=== PATIENT | male | born 1975 | race African-American/Black ===

== ENCOUNTER 2018-01-08 12:36 | Inpatient (IN) | payer OTHER ==
[2018-01-08 14:22] VITALS: BMI 24.5
--- NOTE | 2018-01-08 17:38 | HP ---
CIWA Score - CIWA Score Nausea/Vomitin Muscle Tremors: 1-None Visible, but [place] Anxiety: 3 Agitation: 4-Moderately Restless Paroxysmal Sweats: 1-Minimal Palms Moist Orientation: 0-Oriented Tacttile Disturbances: 0-None Auditory Disturbances: 0-None Visual Disturbances: 0-None Headache: 0-None Present CIWA-Ar Total Score: 12 Admission ROS BHS - HPI Chief Complaint: ETOH withdrawal symptoms. Allergies/Adverse Reactions: Allergies Allergy/AdvReac Type Severity Reaction Status Date / Time No Known Allergies Allergy Verified 01/08/18 17:10 History of Present Illness: Patient presents with ETOH withdrawal symptoms. Started drinking at age 12. Drinks up to 1 litre of Vodka daily. Smokes crack/cocaine weekly. Smokes up to 50.00$ per day of crack/cocaine. Denies Seizures from ETOH use/withdrawal. Also reports using non-prescribed Methadone. Last drink and use of Methadone 01/04/18 , last use of crack/cocaine last night. PMH HIV positive, Depression, anxiety and PTSD. Reports taking Xanax twice daily for anxiety. Last dose today. Denies SI/HI and suicide attempts. Exam Limitations: No Limitations - Ebola screening Have you traveled outside of the country in the last 21 days: No Have you had contact with anyone from an Ebola affected area: No Have you been sick,other than usual withdrawal symptoms: No Do you have a fever: No - Review of Systems Constitutional: Chills, Night Sweats, Changes in sleep, Unexplained wgt Loss EENT: reports: Blurred Vision, Nose Congestion Respiratory: reports: No Symptoms reported Cardiac: reports: No Symptoms Reported GI: reports: Diarrhea, Poor Fluid Intake, Abdominal cramping : reports: No Symptoms Reported Musculoskeletal: reports: Muscle Pain Integumentary: reports: Sweating Neuro: reports: Headache, Tremors Endocrine: reports: Unexplained Weight Loss Hematology: reports: No Symptoms Reported Psychiatric: reports: Orientated x3, Anxious, Depressed Patient History - Patient Medical History Hx Anemia: No Hx Asthma: No Hx Chronic Obstructive Pulmonary Disease (COPD): No Hx Cancer: No Hx Cardiac Disorders: No Hx Congestive Heart Failure: No Hx Hypertension: No Hx Hypercholesterolemia: No Hx Pacemaker: No HX Cerebrovascular Accident: No Hx Seizures: No Hx Dementia: No Hx Diabetes: No Hx Gastrointestinal Disorders: No Hx Liver Disease: No Hx Genitourinary Disorders: No Hx Sexually Transmitted Disorders: No Hx Renal Disease (ESRD): No Hx Thyroid Disease: No Hx Human Immunodeficiency Virus (HIV): Yes Hx Hepatitis C: No Hx Depression: Yes Hx Suicide Attempt: No Hx Bipolar Disorder: No Hx Schizophrenia: No - Patient Surgical History Past Surgical History: No Hx Neurologic Surgery: No Hx Cataract Extraction: No Hx Cardiac Surgery: No Hx Lung Surgery: No Hx Breast Surgery: No Hx Breast Biopsy: No Hx Abdominal Surgery: No Hx Appendectomy: Yes (pt unsure of date) Hx Cholecystectomy: Yes (pt unsure of date) Hx Genitourinary Surgery: No Hx Section: No Hx Orthopedic Surgery: Yes (L leg fx sx) Hx Hysterectomy: No Other Surgical History: R orbital fx sx Anesthesia Reaction: No - PPD History Previous Implant?: Yes Documented Results: Negative w/o proof Implanted On Prior [facility] Admission?: No PPD to be Administered?: Yes - Smoking Cessation Smoking history: Current every day smoker Have you smoked in the past 12 months: Yes Aproximately how many cigarettes per day: 8 Hx Chewing Tobacco Use: No Initiated information on smoking cessation: Yes 'Breaking Loose' booklet given: 01/08/18 - Substance & Tx. History Hx Alcohol Use: Yes Hx Substance Use: Yes Substance Use Type: Alcohol (XANAX and non prescribed methadone), Cocaine, Tranquilizers Hx Substance Use Treatment: Yes - Substances Abused Alcohol Route: Oral Frequency: Daily Amount used: 1 LITER VODKA Age of first use: 12 Date of Last Use: 01/08/18 Crack Route: Smoking Frequency: 1-2 times per week Amount used: $50 Age of first use: 22 Date of Last Use: 01/08/18 Non-Rx Methadone Route: Oral Frequency: 3-6 times per week Amount used: 90 MG Age of first use: 32 Date of Last Use: 01/06/18 Family Disease History - Family Disease History Family History: Denies Admission Physical Exam BHS - Vital Signs Vital Signs: Vital Signs - 24 hr 01/08/18 14:15 Temperature 98.2 F Pulse Rate 80 Respiratory 18 Rate Blood Pressure 128/70 - Physical General Appearance: Yes: Appropriately Dressed, Thin, Irritable, Sweating, Anxious HEENTM: Yes: EOMI, Hearing grossly Normal, Normocephalic, Normal Voice, KELVIN, Thrush Respiratory: Yes: Chest Non-Tender, Lungs Clear, Normal Breath Sounds, No Respiratory Distress, No Accessory Muscle Use Neck: Yes: No masses,lesions,Nodules, Supple, Trachea in good position Breast: Yes: Breast Exam Deferred Cardiology: Yes: Regular Rhythm, S1, S2 Abdominal: Yes: Normal Bowel Sounds, Non Tender, Flat, Soft Genitourinary: Yes: Within Normal Limits Back: Yes: Muscle Spasm Musculoskeletal: Yes: Gait Steady, Joint swelling, Muscle Pain Extremities: Yes: Normal Inspection, Non-Tender, Tremors, Swelling Neurological: Yes: internal audit consultant II-XII NML intact, Fully Oriented, Alert, Motor Strength 5/5, Depressed Affect Integumentary: Yes: Normal Color, Warm, Moist Lymphatic: Yes: Within Normal Limits - Diagnostic (1) Alcohol dependence with uncomplicated withdrawal Current Visit: Yes Status: Acute (2) Cocaine use Current Visit: Yes Status: Acute (3) HIV positive Current Visit: Yes Status: Chronic (4) Depressed affect Current Visit: Yes Status: Acute (5) Anxiety Current Visit: Yes Status: Acute Cleared for Admission [facility] - Detox or Rehab [facility] Level of Care: Medically Managed Detox Regimen/Protocol: Valium [facility] Breath Alcohol Content Breath Alcohol Content: 0 Urine Drug Screen - Results Drug Screen Negative: No Urine Drug Screen Results: DEBORAH-Cocaine, BZO-Benzodiazepines
[2018-01-08] MEDS ORDERED: P-EPHED 60MG/TRIPROLIDI 2.5MG TABLET PO PRN (17:54)
[2018-01-08] MEDS ORDERED: guaiFENesin/D-METHORPHAN HB 10 ML UNIT-DOSE CUPS PO PRN (17:54)
[2018-01-08] MEDS ORDERED: hydrOXYzine PAMOATE 50 MG CAPSULE (FP) PO PRN (17:54)
[2018-01-08] MEDS ORDERED: MAG HYDROX/AL HYDROX/SIMETH 30 ML UNIT-DOSE CUP PO PRN (17:54)
[2018-01-08] MEDS ORDERED: LOPERAMIDE HCL 2 MG CAPSULE PO PRN (17:54)
[2018-01-08] MEDS ORDERED: MENTHOL/PHENOL 1 EACH UD MM PRN (17:54)
[2018-01-08] MEDS ORDERED: NICOTINE POLACRILEX 2 MG GUM BC PRN (17:54)
[2018-01-08] MEDS ORDERED: ACETAMINOPHEN 325 MG TABLET (FP) PO PRN (17:54)
[2018-01-08] MEDS ORDERED: MAGNESIUM HYDROX 2400MG/30ML ORAL SUSPENSION 30 ML CUP PO PRN (17:54)
[2018-01-08] MEDS ORDERED: MAGNESIUM CITRATE 300 ML BOTTLE PO PRN (17:54)
[2018-01-08] MEDS ORDERED: diazePAM 5 MG TABLET PO ONE (18:15)
[2018-01-08] MEDS: MELATONIN 5 MG TABLETS PO PRN (22:31)
[2018-01-08] MEDS: THIAMINE HCL 100 MG TABLET (FP) PO SCH (22:32)
[2018-01-08] MEDS: diazePAM 5 MG TABLET PO SCH (22:32)
[2018-01-08 23:50] LABS: URINE APPEARANCE CLEAR; URINE BILIRUBIN NEGATIVE (<2.0 mg/dL); URINE COLOR YELLOW; URINE GLUCOSE (UA) NEGATIVE (NEGATIVE); URINE KETONE NEGATIVE (NEGATIVE); URINE LEUK ESTERASE TRACE (NEGATIVE); URINE NITRITE NEGATIVE (NEGATIVE); URINE PROTEIN NEGATIVE (NEGATIVE)
[2018-01-08 23:59] LABS: EPI CELLS RARE /HPF (FEW); URINE BACTERIA RARE /hpf (NONE SEEN); URINE MUCUS RARE
[2018-01-09] MEDS: diazePAM 5 MG TABLET PO SCH ×3 (05:25→21:02)
[2018-01-09 09:48] LABS: HEMATOCRIT 36.9 % (35.4-49); HEMOGLOBIN 12.7 GM/dL (11.7-16.9); MCH 33.8 pg (25.7-33.7); MCHC 34.5 g/dl (32.0-35.9); MEAN CELL VOLUME 97.9 fl (80-96); PLATELET COUNT 115 K/MM3 (134-434); RBC 3.77 M/mm3 (4.00-5.60); RDW 15.4 % (11.9-15.9); WHITE BLOOD COUNT 3.8 K/mm3 (4.0-10.0)
[2018-01-09] MEDS: PRENATAL VITAMINS W/ FOLIC ACID TABLET (FP) PO SCH (10:32)
[2018-01-09] MEDS: ABACAVIR/DOLUTEGRAVIR/LAMIVUDI (TRIUMEQ) TABLET -NF PO SCH (10:32)
[2018-01-09] MEDS: NICOTINE 21 MG/24 HOURS TOPICAL PATCH TD SCH (10:33)
[2018-01-09] MEDS: IBUPROFEN 400 MG TABLET (FP) PO PRN ×2 (10:34→21:00)
[2018-01-09 10:42] LABS: CHLORIDE 102 mmol/L (98-107); POTASSIUM 3.6 mmol/L (3.5-5.1); SODIUM 136 mmol/L (136-145)
[2018-01-09 10:52] LABS: ALBUMIN 3.4 g/dl (3.4-5.0); ALK PHOS 81 U/L (45-117); ANION GAP 9 (8-16); BILIRUBIN,TOTAL 0.5 mg/dL (0.2-1.0); BLOOD UREA NITROGEN 9 mg/dL (7-18); CALCIUM 8.7 mg/dL (8.5-10.1); CO2 25 mmol/L (21-32); GLUCOSE,RANDOM 113 mg/dL (74-106); SGOT/AST 47 U/L (15-37); SGPT/ALT 19 U/L (12-78); TOT PROT 8.9 g/dl (6.4-8.2)
--- NOTE | 2018-01-09 11:31 | EKG ---
Test Reason : Blood Pressure : / mmHG Vent. Rate : 074 BPM Atrial Rate : 074 BPM P-R Int : 188 ms QRS Dur : 086 ms QT Int : 394 ms P-R-T Axes : 070 062 054 degrees QTc Int : 437 ms NORMAL SINUS RHYTHM MINIMAL VOLTAGE CRITERIA FOR LVH, MAY BE NORMAL VARIANT BORDERLINE ECG NO PREVIOUS ECGS AVAILABLE Confirmed by AARON PERALTA MD ([id number]) on 01/09/2018 11:30:57 AM Referred By: Confirmed By:AARON PERALTA MD
--- NOTE | 2018-01-09 11:51 | PN ---
[facility] CIWA - CIWA Score Nausea/Vomitin-Mild Nausea/No Vomiting Muscle Tremors: 3 Anxiety: 3 Agitation: 3 Paroxysmal Sweats: 1-Minimal Palms Moist Orientation: 0-Oriented Tacttile Disturbances: 0-None Auditory Disturbances: 0-None Visual Disturbances: 0-None Headache: 0-None Present CIWA-Ar Total Score: 11 S Progress Note (SOAP) Subjective: sweat tremor anxiety restlessness trouble sleep at night Objective: 01/09/18 11:49 Vital Signs Temperature 98.4 F 01/09/18 10:00 Pulse Rate 80 01/09/18 10:00 Respiratory Rate 18 01/09/18 10:00 Blood Pressure 105/74 01/09/18 10:00 O2 Sat by Pulse Oximetry (%) Laboratory Last Values WBC 3.8 K/mm3 (4.0-10.0) L 01/09/18 06:00 RBC 3.77 M/mm3 (4.00-5.60) L 01/09/18 06:00 Hgb 12.7 GM/dL (11.7-16.9) 01/09/18 06:00 Hct 36.9 % (35.4-49) 01/09/18 06:00 MCV 97.9 fl (80-96) H 01/09/18 06:00 MCH 33.8 pg (25.7-33.7) H 01/09/18 06:00 MCHC 34.5 g/dl (32.0-35.9) 01/09/18 06:00 RDW 15.4 % (11.9-15.9) 01/09/18 06:00 Plt Count 115 K/MM3 (134-434) L 01/09/18 06:00 MPV 9.0 fl (7.5-11.1) 01/09/18 06:00 Sodium 136 mmol/L (136-145) 01/09/18 06:00 Potassium 3.6 mmol/L (3.5-5.1) 01/09/18 06:00 Chloride 102 mmol/L (98-107) 01/09/18 06:00 Carbon Dioxide 25 mmol/L (21-32) 01/09/18 06:00 Anion Gap 9 (8-16) 01/09/18 06:00 BUN 9 mg/dL (7-18) 05/03/18 06:00 Creatinine 1.0 mg/dL (0.7-1.3) 01/09/18 06:00 Creat Clearance w eGFR > 60 (>60) 01/09/18 06:00 Random Glucose 113 mg/dL (74-106) H 01/09/18 06:00 Calcium 8.7 mg/dL (8.5-10.1) 01/09/18 06:00 Total Bilirubin 0.5 mg/dL (0.2-1.0) 01/09/18 06:00 AST 47 U/L (15-37) H 01/09/18 06:00 ALT 19 U/L (12-78) 01/09/18 06:00 Alkaline Phosphatase 81 U/L (45-117) 01/09/18 06:00 Total Protein 8.9 g/dl (6.4-8.2) H 01/09/18 06:00 Albumin 3.4 g/dl (3.4-5.0) 01/09/18 06:00 Urine Color Yellow 01/08/18 21:35 Urine Appearance Clear 01/08/18 21:35 Urine pH 6.0 (5.0-8.0) 01/08/18 21:35 Ur Specific [place] 1.012 (1.001-1.035) 01/08/18 21:35 Urine Protein Negative (NEGATIVE) 01/08/18 21:35 Urine Glucose (UA) Negative (NEGATIVE) 01/08/18 21:35 Urine Ketones Negative (NEGATIVE) 01/08/18 21:35 Urine Blood Negative (NEGATIVE) 01/08/18 21:35 Urine Nitrite Negative (NEGATIVE) 01/08/18 21:35 Urine Bilirubin Negative (<2.0 mg/dL) 01/08/18 21:35 Urine Urobilinogen 2.0 mg/dL (0.2-1.0) 01/08/18 21:35 Ur Leukocyte Esterase Trace (NEGATIVE) 01/08/18 21:35 Urine WBC (Auto) 4 /hpf (3-5) 01/08/18 21:35 Urine RBC (Auto) <1 /hpf (0-3) 01/08/18 21:35 Ur Epithelial Cells Rare /HPF (FEW) 01/08/18 21:35 Urine Bacteria Rare /hpf (NONE SEEN) 01/08/18 21:35 Urine Mucus Rare 01/08/18 21:35 lab noted Assessment: 01/09/18 11:50 withdrawal sx Plan: continue detox
[2018-01-09] MEDS: diazePAM 5 MG TABLET PO PRN (12:27)
--- NOTE | 2018-01-09 15:15 | CONSULT ---
[facility] Psychiatric Consult - Data Date of interview: 01/09/18 Admission source: [facility] Identifying data: Patient is a 42 year old transgender female to male, single, without kids, currently employed and living alone. Patient admitted to for alcohol and cocaine dependence. Substance Abuse History: Following information confirmed with Mr. Cote: - Smoking Cessation. Smoking history: Current every day smoker. Have you smoked in the past 12 months: Yes. Aproximately how many cigarettes per day: 8. Hx Chewing Tobacco Use: No. Initiated information on smoking cessation: Yes. ' Breaking Loose' booklet given: 01/08/18. - Substance & Tx. History. Hx Alcohol Use: Yes. Hx Substance Use: Yes. Substance Use Type: Alcohol (XANAX and non prescribed methadone), Cocaine, Tranquilizers. Hx Substance Use Treatment: Yes. - Substances Abused. Alcohol. Route: Oral. Frequency: Daily. Amount used: 1 LITER VODKA. Age of first use: 12. Date of Last Use: . Crack. Route: Smoking. Frequency: 1-2 times per week. Amount used : $50. Age of first use: 22. Date of Last Use: 01/08/18. Non-Rx Methadone. Route: Oral. Frequency: 3-6 times per week. Amount used: 90 MG. Age of first use: 32. Date of Last Use: 01/06/18 Medical History: Appendectomy, Cholecystectomy, left leg fx, and right orbital fracture sx. Psychiatric History: Patient reports two psychiatric hospitalizations, most recently last year at [facility]. Patient's first psychiatric hospitalization was in [place] in 1994. OPD is provided by [facility]. Claims to have a diagnosis of Depression, anxiety, and PTSD ( trauma as a child which patient refused to elaborate on). States she is prescribed lamicatal (is nonadherent), seroquel 400mg. Reports recently taking seroquel two days ago. Pt. denies h/o suicide attempt. Mental Status Exam - Mental Status Exam Alert and Oriented to: Time, Place, Person Cognitive Function: Good Patient Appearance: Well Groomed Mood: Hopeful, Euthymic Affect: Mood Congruent Patient Behavior: Appropriate, Cooperative Speech Pattern: Appropriate Voice Loudness: Normal Thought Process: Goal Oriented Thought Disorder: Not Present Hallucinations: Denies Suicidal Ideation: Denies Homicidal Ideation: Denies Insight/Judgement: Poor Sleep: Poorly Appetite: Fair Muscle strength/Tone: Normal Gait/Station: Normal Psychiatric Findings - Problem List ([place] 1, 2,3) (1) Cocaine dependence Current Visit: Yes Status: Acute (2) Alcohol dependence with uncomplicated withdrawal Current Visit: Yes Status: Acute (3) Substance induced mood disorder Current Visit: Yes Status: Acute (4) Insomnia Current Visit: Yes Status: Acute (5) PTSD (post-traumatic stress disorder) Current Visit: Yes Status: Suspected Comment: History of trauma as a child. - Initial Treatment Plan Initial Treatment Plan: Psychoeducation provided. Detoxification provided. Seroquel 200mg qhs ordered. Benefits and side effects discussed. Verbal consent again. Will continue to monitor.
[2018-01-09 15:35] LABS: SICKLE CELL SCREEN NEGATIVE (NEGATIVE)
[2018-01-09] MEDS: THIAMINE HCL 100 MG TABLET (FP) PO SCH (21:02)
[2018-01-09] MEDS: MELATONIN 5 MG TABLETS PO PRN (21:03)
[2018-01-09] MEDS ORDERED: QUEtiapine FUMARATE 200 MG TABLET PO SCH (22:00)
[2018-01-10] MEDS: IBUPROFEN 400 MG TABLET (FP) PO PRN ×2 (06:47→17:05)
[2018-01-10] MEDS: diazePAM 5 MG TABLET PO PRN ×2 (06:47→17:04)
[2018-01-10] MEDS: PRENATAL VITAMINS W/ FOLIC ACID TABLET (FP) PO SCH (10:23)
[2018-01-10] MEDS: ABACAVIR/DOLUTEGRAVIR/LAMIVUDI (TRIUMEQ) TABLET -NF PO SCH (10:24)
[2018-01-10] MEDS: NICOTINE 21 MG/24 HOURS TOPICAL PATCH TD SCH (10:24)
[2018-01-10] MEDS: diazePAM 5 MG TABLET PO SCH ×2 (10:24→21:39)
--- NOTE | 2018-01-10 12:11 | PN ---
S CIWA - CIWA Score Nausea/Vomitin-No Nausea/No Vomiting Muscle Tremors: 3 Anxiety: 3 Agitation: 3 Paroxysmal Sweats: 1-Minimal Palms Moist Orientation: 0-Oriented Tacttile Disturbances: 0-None Auditory Disturbances: 0-None Visual Disturbances: 0-None Headache: 0-None Present CIWA-Ar Total Score: 10 S Progress Note (SOAP) Subjective: sweat tremor trouble sleep at night anxiety restlessness Objective: 01/10/18 12:10 Vital Signs Temperature 98.1 F 01/10/18 10:41 Pulse Rate 77 01/10/18 10:41 Respiratory Rate 20 01/10/18 10:41 Blood Pressure 122/76 01/10/18 10:41 O2 Sat by Pulse Oximetry (%) Laboratory Last Values WBC 3.8 K/mm3 (4.0-10.0) L 01/09/18 06:00 RBC 3.77 M/mm3 (4.00-5.60) L 01/09/18 06:00 Hgb 12.7 GM/dL (11.7-16.9) 01/09/18 06:00 Hct 36.9 % (35.4-49) 01/09/18 06:00 MCV 97.9 fl (80-96) H 01/09/18 06:00 MCH 33.8 pg (25.7-33.7) H 01/09/18 06:00 MCHC 34.5 g/dl (32.0-35.9) 01/09/18 06:00 RDW 15.4 % (11.9-15.9) 01/09/18 06:00 Plt Count 115 K/MM3 (134-434) L 01/09/18 06:00 MPV 9.0 fl (7.5-11.1) 01/09/18 06:00 Sickle Cell Screen Negative (NEGATIVE) 01/09/18 06:00 Sodium 136 mmol/L (136-145) 01/09/18 06:00 Potassium 3.6 mmol/L (3.5-5.1) 01/09/18 06:00 Chloride 102 mmol/L (98-107) 01/09/18 06:00 Carbon Dioxide 25 mmol/L (21-32) 01/09/18 06:00 Anion Gap 9 (8-16) 01/09/18 06:00 BUN 9 mg/dL (7-18) 01/09/18 06:00 Creatinine 1.0 mg/dL (0.7-1.3) 01/09/18 06:00 Creat Clearance w eGFR > 60 (>60) 01/09/18 06:00 Random Glucose 113 mg/dL (74-106) H 01/09/18 06:00 Calcium 8.7 mg/dL (8.5-10.1) 01/09/18 06:00 Total Bilirubin 0.5 mg/dL (0.2-1.0) 01/09/18 06:00 AST 47 U/L (15-37) H 01/09/18 06:00 ALT 19 U/L (12-78) 01/09/18 06:00 Alkaline Phosphatase 81 U/L (45-117) 01/09/18 06:00 Total Protein 8.9 g/dl (6.4-8.2) H 01/09/18 06:00 Albumin 3.4 g/dl (3.4-5.0) 01/09/18 06:00 Urine Color Yellow 01/08/18 21:35 Urine Appearance Clear 01/08/18 21:35 Urine pH 6.0 (5.0-8.0) 01/08/18 21:35 Ur Specific [place] 1.012 (1.001-1.035) 01/08/18 21:35 Urine Protein Negative (NEGATIVE) 01/08/18 21:35 Urine Glucose (UA) Negative (NEGATIVE) 01/08/18 21:35 Urine Ketones Negative (NEGATIVE) 01/08/18 21:35 Urine Blood Negative (NEGATIVE) 01/08/18 21:35 Urine Nitrite Negative (NEGATIVE) 01/08/18 21:35 Urine Bilirubin Negative (<2.0 mg/dL) 01/08/18 21:35 Urine Urobilinogen 2.0 mg/dL (0.2-1.0) 01/08/18 21:35 Ur Leukocyte Esterase Trace (NEGATIVE) 01/08/18 21:35 Urine WBC (Auto) 4 /hpf (3-5) 01/08/18 21:35 Urine RBC (Auto) <1 /hpf (0-3) 01/08/18 21:35 Ur Epithelial Cells Rare /HPF (FEW) 01/08/18 21:35 Urine Bacteria Rare /hpf (NONE SEEN) 01/08/18 21:35 Urine Mucus Rare 01/08/18 21:35 RPR Titer Nonreactive (NONREACTIVE) 01/09/18 06:00 lab noted Assessment: 01/10/18 12:11 withdrawal sx Plan: continue detox
--- NOTE | 2018-01-10 13:48 | PN ---
[facility] Progress Note Note: Psychiatric nurse practitioner note: Patient alert and oriented X3. Patient able to tolerate seroquel 200mg qhs. No reported complaints or signs of oversedation. Vital signs within normal limits. Pt. reports taking seroquel 400mg qhs. Will increase seroquel to 300mg. Verbal consent given. Will continue to monitor.
[2018-01-10] MEDS: QUEtiapine FUMARATE 300 MG TABLET PO SCH (21:39)
[2018-01-10] MEDS: MELATONIN 5 MG TABLETS PO PRN (21:39)
[2018-01-10] MEDS: THIAMINE HCL 100 MG TABLET (FP) PO SCH (21:39)
[2018-01-11] MEDS: diazePAM 5 MG TABLET PO SCH ×2 (10:26→22:02)
[2018-01-11] MEDS: PRENATAL VITAMINS W/ FOLIC ACID TABLET (FP) PO SCH (10:26)
[2018-01-11] MEDS: ABACAVIR/DOLUTEGRAVIR/LAMIVUDI (TRIUMEQ) TABLET -NF PO SCH (10:27)
[2018-01-11] MEDS: IBUPROFEN 400 MG TABLET (FP) PO PRN (10:28)
[2018-01-11] MEDS: NICOTINE 21 MG/24 HOURS TOPICAL PATCH TD SCH (10:30)
--- NOTE | 2018-01-11 13:21 | PN ---
S Progress Note (SOAP) Subjective: Fatigue, interrupted sleep, anxiety Objective: 01/11/18 13:20 Vital Signs 01/11/18 01/11/18 06:24 10:00 Temperature 97.2 F L 97.2 F L Pulse Rate 78 75 Respiratory 18 18 Rate Blood Pressure 117/83 136/87 Laboratory Last Values WBC 3.8 K/mm3 (4.0-10.0) L 01/09/18 06:00 RBC 3.77 M/mm3 (4.00-5.60) L 01/09/18 06:00 Hgb 12.7 GM/dL (11.7-16.9) 01/09/18 06:00 Hct 36.9 % (35.4-49) 01/09/18 06:00 MCV 97.9 fl (80-96) H 01/09/18 06:00 MCH 33.8 pg (25.7-33.7) H 01/09/18 06:00 MCHC 34.5 g/dl (32.0-35.9) 01/09/18 06:00 RDW 15.4 % (11.9-15.9) 01/09/18 06:00 Plt Count 115 K/MM3 (134-434) L 01/09/18 06:00 MPV 9.0 fl (7.5-11.1) 01/09/18 06:00 Sickle Cell Screen Negative (NEGATIVE) 01/09/18 06:00 Sodium 136 mmol/L (136-145) 01/09/18 06:00 Potassium 3.6 mmol/L (3.5-5.1) 01/09/18 06:00 Chloride 102 mmol/L (98-107) 01/09/18 06:00 Carbon Dioxide 25 mmol/L (21-32) 01/09/18 06:00 Anion Gap 9 (8-16) 01/09/18 06:00 BUN 9 mg/dL (7-18) 01/09/18 06:00 Creatinine 1.0 mg/dL (0.7-1.3) 01/09/18 06:00 Creat Clearance w eGFR > 60 (>60) 01/09/18 06:00 Random Glucose 113 mg/dL (74-106) H 01/09/18 06:00 Calcium 8.7 mg/dL (8.5-10.1) 01/09/18 06:00 Total Bilirubin 0.5 mg/dL (0.2-1.0) 01/09/18 06:00 AST 47 U/L (15-37) H 01/09/18 06:00 ALT 19 U/L (12-78) 01/09/18 06:00 Alkaline Phosphatase 81 U/L (45-117) 01/09/18 06:00 Total Protein 8.9 g/dl (6.4-8.2) H 01/09/18 06:00 Albumin 3.4 g/dl (3.4-5.0) 01/09/18 06:00 Urine Color Yellow 01/08/18 21:35 Urine Appearance Clear 01/08/18 21:35 Urine pH 6.0 (5.0-8.0) 01/08/18 21:35 Ur Specific [place] 1.012 (1.001-1.035) 01/08/18 21:35 Urine Protein Negative (NEGATIVE) 01/08/18 21:35 Urine Glucose (UA) Negative (NEGATIVE) 01/08/18 21:35 Urine Ketones Negative (NEGATIVE) 01/08/18 21:35 Urine Blood Negative (NEGATIVE) 01/08/18 21:35 Urine Nitrite Negative (NEGATIVE) 01/08/18 21:35 Urine Bilirubin Negative (<2.0 mg/dL) 01/08/18 21:35 Urine Urobilinogen 2.0 mg/dL (0.2-1.0) 01/08/18 21:35 Ur Leukocyte Esterase Trace (NEGATIVE) 01/08/18 21:35 Urine WBC (Auto) 4 /hpf (3-5) 01/08/18 21:35 Urine RBC (Auto) <1 /hpf (0-3) 01/08/18 21:35 Ur Epithelial Cells Rare /HPF (FEW) 01/08/18 21:35 Urine Bacteria Rare /hpf (NONE SEEN) 01/08/18 21:35 Urine Mucus Rare 01/08/18 21:35 RPR Titer Nonreactive (NONREACTIVE) 01/09/18 06:00 Labs noted Assessment: 01/11/18 13:21 Withdrawal sx Plan: Continue detox
--- NOTE | 2018-01-11 14:41 | PN ---
[facility] Progress Note Note: Patient reported to nurse this afternoon she was on 10mg of warfarin for PE prior to her admission. She declined to report to admitting provider for fear of not being admitted. PT/INR ordered to determine current values, will medicate accordingly based on report.
[2018-01-11 15:57] LABS: INR 0.94 (0.82-1.09); PROTHROMBIN TIME (PATIENT) 10.6 SEC (9.7-13.0)
[2018-01-11] MEDS ORDERED: WARFARIN NA 5 MG TABLET (UD) PO SCH ×3 (18:00→21:00)
[2018-01-11] MEDS: QUEtiapine FUMARATE 300 MG TABLET PO SCH (22:01)
[2018-01-11] MEDS: THIAMINE HCL 100 MG TABLET (FP) PO SCH (22:02)
[2018-01-12] MEDS: ABACAVIR/DOLUTEGRAVIR/LAMIVUDI (TRIUMEQ) TABLET -NF PO SCH (09:06)
[2018-01-12] MEDS ORDERED: diazePAM 5 MG TABLET PO SCH (10:00)
[2018-01-12 10:03] VITALS: BP 130/87; PULSE 91; TEMP 98.2
--- NOTE | 2018-01-12 12:30 | DS ---
[facility] Detox Discharge Summary Admission Date: 01/08/18 Discharge Date: 01/12/18 - History Present History: Alcohol Dependence, Cocaine Dependence Pertinent Past History: HIV Pulmonary embolism - Physical Exam Results Vital Signs: Vital Signs Temperature 98.2 F 01/12/18 10:02 Pulse Rate 91 H 01/12/18 10:02 Respiratory Rate 16 01/12/18 10:02 Blood Pressure 130/87 01/12/18 10:02 O2 Sat by Pulse Oximetry (%) Pertinent Admission Physical Exam Findings: Withdrawal symptoms Laboratory Tests 01/08/18 01/09/18 01/09/18 21:35 06:00 06:00 WBC 3.8 L RBC 3.77 L Hgb 12.7 Hct 36.9 MCV 97.9 H MCH 33.8 H MCHC 34.5 RDW 15.4 Plt Count 115 L MPV 9.0 Sickle Cell Screen Negative PT with INR INR Sodium 136 Potassium 3.6 Chloride 102 Carbon Dioxide 25 Anion Gap 9 BUN 9 Creatinine 1.0 Creat Clearance w eGFR > 60 Random Glucose 113 H Calcium 8.7 Total Bilirubin 0.5 AST 47 H ALT 19 Alkaline Phosphatase 81 Total Protein 8.9 H Albumin 3.4 Urine Color Yellow Urine Appearance Clear Urine pH 6.0 Ur Specific [place] 1.012 Urine Protein Negative Urine Glucose (UA) Negative Urine Ketones Negative Urine Blood Negative Urine Nitrite Negative Urine Bilirubin Negative Urine Urobilinogen 2.0 Ur Leukocyte Esterase Trace Urine WBC (Auto) 4 Urine RBC (Auto) <1 Ur Epithelial Cells Rare Urine Bacteria Rare Urine Mucus Rare RPR Titer 01/09/18 01/11/18 06:00 14:13 WBC RBC Hgb Hct MCV MCH MCHC RDW Plt Count MPV Sickle Cell Screen PT with INR 10.60 INR 0.94 Sodium Potassium Chloride Carbon Dioxide Anion Gap BUN Creatinine Creat Clearance w eGFR Random Glucose Calcium Total Bilirubin AST ALT Alkaline Phosphatase Total Protein Albumin Urine Color Urine Appearance Urine pH Ur Specific [place] Urine Protein Urine Glucose (UA) Urine Ketones Urine Blood Urine Nitrite Urine Bilirubin Urine Urobilinogen Ur Leukocyte Esterase Urine WBC (Auto) Urine RBC (Auto) Ur Epithelial Cells Urine Bacteria Urine Mucus RPR Titer Nonreactive Labs reviewed - Treatment Hospital Course: Detox Protocol Followed, Detoxed Safely, Responded well, Discharged Condition Good - Medication Discharge Medications: Ambulatory Orders Abacavir/Dolutegravir/Lamivudi [Triumeq Tablet] 1 each PO DAILY 01/08/18 Quetiapine Fumarate [Seroquel -] 400 mg PO HS 01/08/18 Coumadin - 10 mg DAILY 01/11/18 - Diagnosis (1) Depression Status: Acute (2) Nicotine dependence Status: Chronic (3) Pulmonary embolism Status: Chronic (4) Alcohol dependence with uncomplicated withdrawal Status: Acute (5) Cocaine dependence Status: Chronic Qualifiers: Substance use status: uncomplicated Qualified Code(s): F14.20 - Cocaine dependence, uncomplicated (6) Insomnia Status: Acute (7) Substance induced mood disorder Status: Acute (8) HIV positive Status: Chronic - AMA Did Patient Leave Against Medical Advice: No (Follow up with your PCP within 1 week)
[2018-01-12] MEDS ORDERED: WARFARIN NA 5 MG TABLET (UD) PO SCH ×2 (18:00→19:45)
== END 2018-01-12 09:20 | disposition home or self-care (01) | DRG 774 ==
LOC: YASAS 12:36 → Y6N 17:59
PROVIDERS: ADMIT Surgery; ATTEND Surgery
PROC: HZ2ZZZZ Detoxification Services for Substance Abuse Treatment (ICD-10-PCS; principal; 2018-01-08)
DX: F13.230 Sedative, hypnotic or anxiolytic dependence with withdrawal, uncomplicated (principal); F10.230 Alcohol dependence with withdrawal, uncomplicated; F14.20 Cocaine dependence, uncomplicated; F17.210 Nicotine dependence, cigarettes, uncomplicated; F19.24 Other psychoactive substance dependence with psychoactive substance-induced mood disorder; F32.9 Major depressive disorder, single episode, unspecified; F43.10 Post-traumatic stress disorder, unspecified; G47.00 Insomnia, unspecified; Z21 Asymptomatic human immunodeficiency virus [HIV] infection status; I26.99 Other pulmonary embolism without acute cor pulmonale; Z79.01 Long term (current) use of anticoagulants; R45.89 Other symptoms and signs involving emotional state
CPT/HCPCS: 36415; 80053; 81003; 81015; 85027; 85610; 85660; 86593; 93005; 93010